=== PATIENT | male | born 1995 | race Caucasian/White ===

== ENCOUNTER 2017-07-19 18:44 | Emergency (ER) | payer BC ==
[2017-07-19 19:25] VITALS: BMI 25.0
[2017-07-19] MEDS ORDERED: Sodium Chloride 0.9% 1,000 ML IV STA (19:55)
--- NOTE | 2017-07-19 20:15 | ED PDOC ---
Arrival/HPI - General Chief Complaint: Abdominal Pain Time Seen by Provider: 07/19/17 19:28 Historian: Patient - History of Present Illness Narrative History of Present Illness (Text): 07/19/17 20:00 A 22 year old male, with no significant past medical history, presents to the emergency department complaining of abdominal pain present intermittently for the past month. Patient reports pain seems more persistent today. Notes occasional episode of vomiting. Patient arrives to the ER for further evaluation.No hx. of any fever,chills or urinary complaints.No testicular pain.No other complaints at this time. PMD: Dr. Kell Reina Past Medical History - Provider Review Nursing Documentation Reviewed: Yes - Past Medical History Past Medical History: No Previous - Cardiac Hx Cardiac Disorders: No - Pulmonary Hx Respiratory Disorders: No - Neurological Hx Neurological Disorder: No - HEENT Hx HEENT Disorder: No - Renal Hx Renal Disorder: No - Endocrine/Metabolic Hx Endocrine Disorders: No - Hematological/Oncological Hx Blood Disorders: No - Integumentary Hx Dermatological Disorder: No - Musculoskeletal/Rheumatological Hx Musculoskeletal Disorders: No - Gastrointestinal Hx Gastrointestinal Disorders: No - Genitourinary/Gynecological Hx Genitourinary Disorders: No - Psychiatric Hx Psychophysiologic Disorder: No Hx Substance Use: Yes (marijuana) - Past Surgical History Past Surgical History: No Previous - Suicidal Assessment Feels Threatened In Home Enviroment: No Family/Social History - Physician Review Nursing Documentation Reviewed: Yes Family/Social History: No Known Family HX Smoking Status: Never Smoked Hx Alcohol Use: No Hx Substance Use: Yes (marijuana) Allergies/Home Meds Allergies/Adverse Reactions: Allergies No Known Allergies Allergy (Verified 07/19/17 19:11) Home Medications: Home Meds Medication Instructions Recorded Confirmed No Known Home Med 07/19/17 07/19/17 Review of Systems - Physician Review All systems were reviewed & negative as marked: Yes - Review of Systems Constitutional: absent: Fevers, Night Sweats Respiratory: absent: SOB, Cough Cardiovascular: absent: Chest Pain Gastrointestinal: Abdominal Pain, Vomiting (3 episodes past 3 days (mornings)). absent: Diarrhea, Nausea Physical Exam Vital Signs Reviewed: Yes Vital Signs Temp Pulse Resp BP Pulse Ox 07/19/17 23:29 98.2 F 82 17 116/71 100 07/19/17 19:11 98.1 F 100 H 18 120/72 96 Temperature: Afebrile Blood Pressure: Normal Pulse: Regular Respiratory Rate: Normal Appearance: Positive for: Well-Appearing Pain Distress: None Mental Status: Positive for: Alert and Oriented X 3 - Systems Exam Pupils: Present: PERRL Extroacular Muscles: Present: EOMI Conjunctiva: Present: Normal Neck: Present: Normal Range of Motion Respiratory/Chest: Present: Clear to Auscultation, Good Air Exchange. No: Respiratory Distress, Accessory Muscle Use Cardiovascular: Present: Regular Rate and Rhythm, Normal S1, S2. No: Murmurs Abdomen: Present: Tenderness (questionable to right lower abdomen). No: Rebound , Guarding Back: Present: Normal Inspection Upper Extremity: Present: Normal Inspection. No: Cyanosis, Edema Lower Extremity: Present: Normal Inspection. No: Edema Neurological: Present: GCS=15, CN II-XII Intact, Speech Normal, Motor Func Grossly Intact, Normal Sensory Function Skin: Present: Warm, Dry, Normal Color. No: Rashes Psychiatric: Present: Alert, Oriented x 3, Normal Insight, Normal Concentration Medical Decision Making ED Course and Treatment: 07/19/17 20:03 Impression: 22 year old male with abdominal pain. Physical exam shows right lower mild tenderness, with no guarding/rebound. Plan: -- Abd/Pelvis CT -- Labs -- Urinalysis -- Sodium Chloride IV Fluids -- Toradol -- Reassess and disposition Progress Notes: 07/19/17 23:12 On reexamination patient denies any abdominal pain.Physical exam completely benign/no TTP CT Abdomen and Pelvis With Intravenous Contrast Dictated and Authenticated by: Christal Stewart MD 07/19/2017 10:32 PM Eastern Time ([place] & [place]) IMPRESSION: No definitive acute CT finding to correspond to reported history. Correlate clinically. Followup as warranted. - Lab Interpretations Lab Results: 07/19/17 20:17 07/19/17 20:17 Lab Results 07/19/17 20:17: WBC 8.9, RBC 4.99, Hgb 15.2, Hct 43.9, MCV 88.0, MCH 30.5, MCHC 34.6, RDW 12.9, Plt Count 262, MPV 10.5 07/19/17 20:17: Sodium 141, Potassium 4.0, Chloride 102, Carbon Dioxide 29, Anion Gap 15, BUN 16, Creatinine 1.0, Est GFR ( Amer) > 60, Est GFR (Non- Af Amer) > 60, Random Glucose 76, Calcium 10.3, Total Bilirubin 0.6, AST 26, ALT 24, Alkaline Phosphatase 43, Total Protein 7.5, Albumin 4.6, Globulin 2.8, Albumin/Globulin Ratio 1.6, Lipase 51 07/19/17 20:17: Urine Color Yellow, Urine Appearance Clear, Urine pH 6.5, Ur Specific [place] 1.025, Urine Protein Negative, Urine Glucose (UA) Negative, Urine Ketones Trace H, Urine Blood Small H, Urine Nitrate Negative, Urine Bilirubin Negative, Urine Urobilinogen 0.2, Ur Leukocyte Esterase Negative, Urine RBC 2 - 5, Urine WBC Negative, Ur Epithelial Cells 0 - 2, Urine Bacteria Trace - RAD Interpretation Radiology Orders: 07/19/17 19:53 ABD & PELVIS IV CONTRAST ONLY [CT] Stat - Medication Orders Current Medication Orders: Discontinued Medications Sodium Chloride (Sodium Chloride 0.9%) 1,000 mls @ 999 mls/hr IV .Q1H1M STA Stop: 07/19/17 20:55 Last Admin: 07/19/17 20:12 Dose: 999 mls/hr eMAR Start Stop Document 07/19/17 20:12 GMD (Rec: 07/19/17 20:13 GMD [id number]) Intravenous Solution Start Date 07/19/17 Start Time 20:13 End Date 07/19/17 End time 21:13 Total Infusion Time 60 Ketorolac Tromethamine (Toradol) 30 mg IVP ONCE ONE Stop: 07/19/17 19:56 Last Admin: 07/19/17 20:12 Dose: 30 mg MAR Pain Assessment Document 07/19/17 20:12 GMD (Rec: 07/19/17 20:12 GMD [id number]) Pain Reassessment Is this a pain reassessment? No Presence of Pain Presence of Pain Yes IVP Administration Document 07/19/17 20:12 GMD (Rec: 07/19/17 20:12 GMD [id number]) Charges for Administration # of IVP Administrations 1 - Scribe Statement The provider has reviewed the documentation as recorded by the Allison Gaines Provider Scribe Attestation: All medical record entries made by the Scribe were at my direction and personally dictated by me. I have reviewed the chart and agree that the record accurately reflects my personal performance of the history, physical exam, medical decision making, and the department course for this patient. I have also personally directed, reviewed, and agree with the discharge instructions and disposition. Disposition/Present on Arrival - Present on Arrival Any Indicators Present on Arrival: No History of DVT/PE: No History of Uncontrolled Diabetes: No Urinary Catheter: No History of Decub. Ulcer: No History Surgical Site Infection Following: None - Disposition Have Diagnosis and Disposition been Completed?: Yes Diagnosis: Abdominal pain, Hematuria Disposition: HOME/ ROUTINE Disposition Time: 23:16 Patient Plan: Discharge Condition: STABLE Additional Instructions: Drink plenty of liquids/follow up with your urologist as scheduled/any recurrent persistent symptoms return to the emergency room Referrals: Kell Reina MD [Primary Care Provider] - Follow up with primary Forms: [email or web address] (Indian)
[2017-07-19 20:24] LABS: HEMOGLOBIN 15.2 g/dL (14.0-18.0); MEAN CORPUSCULAR HEMOGLOBIN 30.5 pg (25.0-35.0); MEAN CORPUSCULAR HGB CONC 34.6 g/dl (31.0-37.0); MEAN PLATELET VOLUME 10.5 fl (7.0-11.0); RBC 4.99 10^6/uL (3.5-6.1); RED CELL DISTRIBUTION WIDTH 12.9 % (11.5-14.5); WHITE BLOOD COUNT 8.9 10^3/ul (4.5-11.0)
[2017-07-19 20:25] LABS: PH,URINE 6.5 (4.7-8.0); URINE BILIRUBIN NEGATIVE (NEGATIVE); URINE BLOOD SMALL (NEGATIVE); URINE GLUCOSE (UA) NEGATIVE (NEGATIVE); URINE LEUKOCYTE ESTERASE NEGATIVE Leu/uL (NEGATIVE); URINE PROTEIN NEGATIVE mg/dL (<30 mg/dL); URINE UROBILINOGEN 0.2 E.U./dL (<1 E.U./dL)
[2017-07-19 20:27] LABS: URINE APPEARANCE CLEAR (CLEAR); URINE COLOR YELLOW (YELLOW)
[2017-07-19 20:33] LABS: URINE BACTERIA TRACE (NEG); URINE EPITHELIAL CELLS 0 - 2 /hpf (0-5); URINE WBC NEGATIVE /hpf (0-6)
[2017-07-19 20:34] LABS: ALB/GLOB RATIO 1.6 (1.1-1.8); ALBUMIN 4.6 g/dL (3.0-4.8); ALT/SGPT 24 U/L (7-56); AST/SGOT 26 U/L (17-59); BLOOD UREA NITROGEN 16 mg/dL (7-21); CALCIUM 10.3 mg/dL (8.4-10.5); GFR AFRICAN-AMERICAN > 60; GFR NON-AFRICAN AMERICAN > 60; LIPASE 51 U/L (23-300)
[2017-07-19] MEDS ORDERED: Iohexol 350 MG/100 ML VIAL ONE (21:03)
--- NOTE | 2017-07-19 22:32 | CT ---
EXAM: CT Abdomen and Pelvis With Intravenous Contrast CLINICAL HISTORY: 22 years old, male; Pain; Abdominal pain; Localized; Right; Additional info: Right sided abdominal pain TECHNIQUE: Axial computed tomography images of the abdomen and pelvis with intravenous contrast. All CT scans at this facility use one or more dose reduction techniques, viz.: automated exposure control; ma/kV adjustment per patient size (including targeted exams where dose is matched to indication; i.e. head); or iterative reconstruction technique. Coronal and sagittal reformatted images were created and reviewed. CONTRAST: 100 mL of OMNI 350 administered intravenously. COMPARISON: No relevant prior studies available. FINDINGS: Lung bases: No acute abnormality as visualized. ABDOMEN: Liver: No acute abnormality as visualized. Gallbladder and bile ducts: No acute abnormality as visualized. Pancreas: No acute abnormality as visualized. Spleen: No splenomegaly. Adrenals: No acute abnormality as visualized. Kidneys and ureters: Symmetric emhancement. No hydronephrosis. Stomach and bowel: Limited evaluation without enteric contrast. No obstruction. No definitive focus of acute inflammation. Appendix: No findings to suggest acute appendicitis. PELVIS: Bladder: No acute abnormality as visualized. Reproductive: No acute abnormality as visualized. ABDOMEN and PELVIS: Intraperitoneal space: No free air. No significant fluid collection. Bones/joints: Degenerative changes. Soft tissues: No acute abnormality as visualized. Vasculature: No acute abnormality as visualized. No abdominal aortic aneurysm. Lymph nodes: Shotty nodes. IMPRESSION: No definitive acute CT finding to correspond to reported history. Correlate clinically. Followup as warranted.
[2017-07-19 23:30] VITALS: BP 116/71; PULSE 82; RESP 17; TEMP 98.2; O2SAT 100
== END 2017-07-19 23:30 | disposition home or self-care (01) ==
LOC: ED 18:44
DX: R31.9 Hematuria, unspecified (principal); R10.9 Unspecified abdominal pain
CPT/HCPCS: 74177; 80053; 81001; 83690; 85027; 96361; 96374; 99284; J1885; J7040; Q9967